=== PATIENT | female | born 1965 | race Caucasian/White ===

== ENCOUNTER → 2017-04-06 | Outpatient (CLI) | payer MEDICARE, MEDICAID ==
[~2017-04-06] MED LIST: ACET-819 PO; ARIP10TA2 PO; DCS100C PO; DIAZ-345 PO; DVL250TEC1; DVL500TSR; DVL500TSR PO; ESCT10T; FLC1T PO; IBP200T PO; LAMO100T PO; LAMO100T69 PO; LEVO750T24 PO; LOPE2TAB23 PO; LORA1TAB PO; MEDR2.5T28 IM; MIRT15TA6 PO; MULT-187 PO; NA P133E35 PR; PEG250PW PO; POLY17PO23 PO; PROP20TA23; RSP1B30; SULF1TAB35 PO; [UNRECOGNIZED DRUG - CODE] PO
--- NOTE | 2017-04-07 19:23 | Diagnostic Imaging Report ---
Bilateral screening mammogram. The current study was also evaluated with a Computer Aided Detection (CAD) system. INDICATION: Screening. No current complaints stated on the questionnaire. COMPARISON: 01/30/2015. FINDINGS: The breasts are composed of heterogeneously dense parenchyma which may decrease mammographic sensitivity. Pacemaker is seen in the axillary region of the left breast interfering with the positioning of the patient for the mammogram. Also, the patient is mentally disabled resulting in less than optimum views and slight motion on the left MLO view despite multiple attempts to obtain better images as noted by the technologist. Diffuse calcifications with benign appearance seen. IMPRESSION: Limited exam with no definite change from the prior studies. ACR BI-RADS Category 2: Benign findings. Result letter will be mailed to the patient. Note: At least 10% of breast cancer is not imaged by mammography. Dictated by: Dictated on workstation # [id number]
== END ==
LOC: RAD 08:48
PROVIDERS: ATTEND Nurse Practitioner Family
DX: Z12.31 Encounter for screening mammogram for malignant neoplasm of breast (principal)
CPT/HCPCS: 77067

== ENCOUNTER → 2017-04-29 | Outpatient (CLI) | payer MEDICARE, MEDICAID | LOC: PREOP 05:41 | PROVIDERS: ATTEND Surgery | DX: Z01.818 Encounter for other preprocedural examination (principal); Z12.11 Encounter for screening for malignant neoplasm of colon ==

== ENCOUNTER 2017-05-03 08:32 | Day surgery (SDC) | payer MEDICARE, MEDICAID ==
[~2017-05-03] VITALS: Ht 160 cm; Wt 69.9 kg
[2017-05-03] MEDS ORDERED: NS IV 1000 ML 1,000 ML IV SCH (09:15)
[2017-05-03 09:25] VITALS: BP 111/67
[2017-05-03] MEDS ORDERED: NS IV 1000 ML 1,000 ML ONE (09:30)
--- NOTE | 2017-05-03 09:47 | Progress Note-Pre Operative ---
Pre-Operative Progress Note H&P Reviewed The H&P was reviewed, patient examined and no changes noted. Time Seen by Provider: 09:47 Date H&P Reviewed: May 03, 2017 Time H&P Reviewed: 09:47 Pre-Operative Diagnosis: screening colonoscopy GABBY CROCKER DO May 03, 2017 9:47 am
[2017-05-03] MEDS ORDERED: fentaNYL INJECTION 100 MCG/2 ML AMP ONE (10:12)
[2017-05-03] MEDS ORDERED: proPOfol 200 MG/20 ML (DIPRIVAN) VIAL IV ONE (10:12)
--- NOTE | 2017-05-03 11:00 | Discharge Inst-Simple/Standard ---
Discharge Inst-Standard Patient Instructions/Follow Up Plan of Care/Instructions/FU: Hold ibuprofen for 2 more days Follow up with Dr. Mills in 2 weeks Repeat colonoscopy in 5 years or sooner if changes in current conditions. Activity as Tolerated: Yes Discharge Diet: No Restrictions LISA OLIVARES APRN May 03, 2017 11:00
--- NOTE | 2017-05-03 11:01 | Progress Note-Post Operative ---
Post-Operative Progess Note Surgeon (s)/Negative Cleaner (s) Surgeon GABBY CROCKER DO Negative Cleaner: na Pre-Operative Diagnosis screening colonoscopy Post-Operative Diagnosis ascending colon polyp Procedure & Operative Findings Date of Procedure 05/03/17 Procedure Performed/Findings colonoscopy with hot bx polypectomy Anesthesia Type per pecan picker Estimated Blood Loss Estimated blood loss (mL): none Specimens/Packing Specimens Removed ascending colon polyp GABBY CROCKER DO May 03, 2017 11:01 am
[2017-05-03 11:15] VITALS: BP 134/80
[2017-05-03 11:45] VITALS: BP 118/85
[2017-05-03 12:00] VITALS: BP 118/85
--- NOTE | 2017-05-03 12:52 | OPERATIVE REPORT ---
DATE OF SERVICE: 05/03/2017 PREOPERATIVE DIAGNOSIS: Screening colonoscopy. POSTOPERATIVE DIAGNOSIS: Ascending colon polyp. PROCEDURE: Colonoscopy with hot biopsy polypectomy. SURGEON: Gabby Mills DO ANESTHESIA: Per APPLICATIONS ENGINEER MANUFACTURING. ESTIMATED BLOOD LOSS: None. COMPLICATIONS: None. INDICATIONS: The patient is a 51-year-old female, who has not had a screening colonoscopy. She understands risks and benefits of procedure and wished to proceed with procedure. Consent was signed and on the chart. DESCRIPTION OF PROCEDURE: The patient was taken to the endoscopy suite, placed in left lateral recumbent position. Timeout was performed. Digital rectal exam was performed and there were no palpable polyps, mass or ulcerations. The scope was inserted in the rectum and advanced all the way to the cecum with minimal difficulty. There were no polyps, masses or ulcerations in the cecum. Scope was slowly retracted back. A small polyp in the ascending colon, which hot biopsy polypectomy was performed. Scope was continued to be slowly retracted back. There were no polyps, masses or ulcerations in the remainder of the ascending colon, transverse colon, descending colon, sigmoid colon, and rectum. Within the rectum, scope was also retroflexed. No other pathology. Scope was returned to its normal position slowly withdrawn until completely removed. The patient tolerated the procedure well without any complications. She was taken to recovery room in stable condition. RECOMMENDATIONS: The patient will need repeat colonoscopy in 5 years. If she has any problems prior to that, she should be reevaluated at that time. The patient will follow up in the office in 2 weeks to discuss pathology. Job ID: [id number] DocumentID: [id number] Dictated Date: 05/03/2017 11:04:55 Manager Media Date: 05/03/2017 11:53:11 Dictated By: GABBY MILLS DO
== END 2017-05-03 12:00 | disposition home or self-care (01) ==
LOC: ENDO 08:32
PROVIDERS: ATTEND Surgery
DX: Z12.11 Encounter for screening for malignant neoplasm of colon (principal); D12.2 Benign neoplasm of ascending colon; G40.909 Epilepsy, unspecified, not intractable, without status epilepticus; F79 Unspecified intellectual disabilities; Z79.899 Other long term (current) drug therapy
CPT/HCPCS: 84703; 88305

== ENCOUNTER 2018-09-14 18:01 | Emergency (ER) | payer MEDICARE, MEDICAID ==
[~2018-09-14] VITALS: Ht 160 cm; Wt 55.3 kg
--- OUTSIDE RECORDS SUMMARY | 2018-09-14 18:06 | XMS REPORT ---
Author Author THI DELEON [facility] Address [address] [place] [address] Care Team Providers Care Adolescent Coordinator Name Role Phone THI DELEON Unavailable PROBLEMS Unknown Problems ALLERGIES No Information SOCIAL HISTORY Never Assessed PLAN OF CARE VITAL SIGNS MEDICATIONS Unknown Medications RESULTS No Results PROCEDURES No Known procedures IMMUNIZATIONS No Known Immunizations MEDICAL (GENERAL) HISTORY Type Description Date Medical History Mild IDD Medical History Explosive mood disorder Medical History VNS implant Medical History Seizure disorder Medical History Constipation Medical History Depression Medical History Gerd Medical History Sleep apnea Medical History cataracts Medical History Epilepsy Surgical History VNS implant
--- OUTSIDE RECORDS SUMMARY | 2018-09-14 18:07 | XMS REPORT | Continuity of Care Document ---
Author Author [facility] Organization [facility] Address Unknown Phone Unavailable Allergies Active Description Code Type Severity Reaction Onset Reported/Identified Relationship to Patient Clinical Status Yes NO KNOWN DRUG ALLERGIES UNKNOWN NO KNOWN DRUG ALLERG Yes No Known Drug Allergies [id number] Drug Allergy Mild N/A 10/03/2013 Medications Medication Packaging Start Date Stop Date Route Dosage Sig POLY/BACI/NEOM OINT OINT (NEOSPORIN) della 10/28/2017 10/28/2017 [id number] Problems Date Dx Coded Attending Type Code Diagnosis Diagnosed By 10/10/2013 ROMI PASCUAL DO Ot 287.5 THROMBOCYTOPENIA NOS 10/10/2013 ROMI PASCUAL DO Ot 319 UNSPECIFIED INTELLECTUAL DISABILITIES 10/10/2013 ROMI PASCUAL DO Ot 345.90 EPILEPSY UNSPEC W/O MENTION INTRACTABLE 10/10/2013 ROMI PASCUAL DO Ot 486 PNEUMONIA, ORGANISM NOS 10/10/2013 ROMI PASCUAL DO Ot 574.11 CHOLELITH/GB INF NEC-OBS 10/10/2013 ROMI PASCUAL DO Ot 599.0 URIN TRACT INFECTION NOS 10/10/2013 ROMI PASCUAL DO Ot 790.5 ABN SERUM ENZY LEVEL NEC 02/18/2015 Ot V76.12 02/18/2015 Ot V76.12 02/21/2015 Ot V76.12 03/10/2015 Ot V76.12 04/04/2017 Ot 793.81 MAMMOGRAPHIC MICROCLACIFICATION 04/04/2017 Ot V67.09 SURGERY FOLLOW-UP, OTHER SURGERY 04/04/2017 Ot 793.80 UNSPEC ABNORMAL MAMMOGRAM 04/04/2017 ROMI PASCUAL DO Ot V76.12 OTH SCREEN MAMMO-MALIGN NEOPLASM OF JAIME 04/04/2017 ROMI PASCUAL DO Ot 592.0 CALCULUS OF KIDNEY 04/04/2017 ROMI PASCUAL DO Ot 593.9 RENAL URETERAL DIS NOS 04/04/2017 ROMI PASCUAL DO Ot 790.6 ABN BLOOD CHEMISTRY NEC 04/04/2017 ROMI PASCUAL DO Ot 793.5 NOSP (ABN) FINDINGS ON RADIOLOGICAL OT 04/04/2017 Ot V76.12 OTH SCREEN MAMMO-MALIGN NEOPLASM OF JAIME 04/04/2017 THI DELEON [facility] Ot Z12.31 ENCNTR SCREEN MAMMOGRAM FOR MALIGNANT NE 04/04/2017 THI DELEON [facility] Ot Z12.31 ENCNTR SCREEN MAMMOGRAM FOR MALIGNANT NE 04/04/2017 THI DELEON [facility] Ot Z12.31 ENCNTR SCREEN MAMMOGRAM FOR MALIGNANT NE 04/06/2017 Ot 793.81 MAMMOGRAPHIC MICROCLACIFICATION 04/06/2017 Ot V67.09 SURGERY FOLLOW-UP, OTHER SURGERY 04/06/2017 Ot 793.80 UNSPEC ABNORMAL MAMMOGRAM 04/06/2017 ROMI PASCUAL DO Ot V76.12 OTH SCREEN MAMMO-MALIGN NEOPLASM OF JAIME 04/06/2017 ROMI PASCUAL DO Ot 592.0 CALCULUS OF KIDNEY 04/06/2017 ROMI PASCUAL DO Ot 593.9 RENAL URETERAL DIS NOS 04/06/2017 ROMI PASCUAL DO Ot 790.6 ABN BLOOD CHEMISTRY NEC 04/06/2017 ROMI PASCUAL DO Ot 793.5 NOSP (ABN) FINDINGS ON RADIOLOGICAL OT 04/06/2017 Ot V76.12 OTH SCREEN MAMMO-MALIGN NEOPLASM OF JAIME 04/06/2017 THI DELEON [facility] Ot Z12.31 ENCNTR SCREEN MAMMOGRAM FOR MALIGNANT NE 04/06/2017 THI DELEONP Ot Z12.31 ENCNTR SCREEN MAMMOGRAM FOR MALIGNANT NE 05/03/2017 GABBY CROCKER DO Ot D12.2 BENIGN NEOPLASM OF ASCENDING COLON 05/03/2017 GABBY CROCKER DO Ot F79 UNSPECIFIED INTELLECTUAL DISABILITIES 05/03/2017 GABBY CROCKER DO Ot G40.909 EPILEPSY, UNSP, NOT INTRACTABLE, WITHOUT 05/03/2017 GABBY CROCKER DO Ot Z12.11 ENCOUNTER FOR SCREENING FOR MALIGNANT NE 05/03/2017 GABBY CROCKER DO Ot Z79.899 OTHER BRIDGE OPERATOR SLIP (CURRENT) DRUG THERAPY 05/05/2017 THI DELEON [facility] Ot Z12.31 ENCNTR SCREEN MAMMOGRAM FOR MALIGNANT NE 05/09/2017 THI DELEON [facility] Ot Z12.31 ENCNTR SCREEN MAMMOGRAM FOR MALIGNANT NE 05/10/2017 CROCKERGABBY GARCIA DO Ot D12.2 BENIGN NEOPLASM OF ASCENDING COLON 05/10/2017 CROCKERGABBY GARCIA DO Ot F79 UNSPECIFIED INTELLECTUAL DISABILITIES 05/10/2017 GABBY CROCKER DO Ot G40.909 EPILEPSY, UNSP, NOT INTRACTABLE, WITHOUT 05/10/2017 CROCKER GABBY DIAS Ot Z12.11 ENCOUNTER FOR SCREENING FOR MALIGNANT NE 05/10/2017 GABBY CROCKER DO Ot Z79.899 OTHER BRIDGE OPERATOR SLIP (CURRENT) DRUG THERAPY 06/03/2017 GABBY CROCKER DO Ot D12.2 BENIGN NEOPLASM OF ASCENDING COLON 06/03/2017 GABBY CROCKER DO Ot F79 UNSPECIFIED INTELLECTUAL DISABILITIES 06/03/2017 GABBY CROCKER DO Ot G40.909 EPILEPSY, UNSP, NOT INTRACTABLE, WITHOUT 06/03/2017 CROCKER GABBY DIAS Ot Z12.11 ENCOUNTER FOR SCREENING FOR MALIGNANT NE 06/03/2017 GABBY CROCKER DO Ot Z79.899 OTHER BRIDGE OPERATOR SLIP (CURRENT) DRUG THERAPY 10/28/2017 Michel Negrete 873.42 OPEN WOUND OF FOREHEAD, UNCOMPLICATED 10/28/2017 Michel Negrete S01.81XA LACERATION W/O FOREIGN BODY OF OTH PART OF HEAD, INIT ENCNTR 11/04/2017 Michel Negrete V58.32 ENCOUNTER FOR REMOVAL OF SUTURES 11/04/2017 Michel Negrete Z48.02 ENCOUNTER FOR REMOVAL OF SUTURES 09/02/2018 Spenser Alcantara E888.8 OTHER FALL 09/02/2018 Spenser Alcantara V71.4 OBSERVATION FOLLOWING OTHER ACCIDENT 09/02/2018 Spenser Alcantara W18.30XA FALL ON SAME LEVEL, UNSPECIFIED, INITIAL ENCOUNTER 09/02/2018 Spenser Alcantara Z04.3 ENCOUNTER FOR EXAM AND OBSERVATION FOLLOWING OTH ACCIDENT Procedures Code Description Performed By Performed On 51.23 LAPAROSCOPIC CHOLECYSTECTOMY 10/08/2013 87.53 INTRAOPER CHOLANGIOGRAM 10/08/2013 Results Test Result Range Valproic Acid - 11/01/16 11:38 Valproic Acid 101.4 ug/mL 55.0-105.0 Valproic Acid - 11/08/16 09:37 Valproic Acid 68.5 ug/mL 55.0-105.0 Valproic Acid - 02/25/17 11:17 Valproic Acid 91.1 ug/mL 55.0-105.0 Urine beta human chorionic gonadotropin (hCG) measurement - 05/03/17 09:00 Urine beta human chorionic gonadotropin (hCG) measurement NEGATIVE NEGATIVE Valproic Acid - 06/02/17 08:58 Valproic Acid 106.9 ug/mL 55.0-105.0 Thyroid Stimulating Hormone - 06/10/17 08:46 TSH 3.87 mIU/mL 0.32-5.00 Valproic Acid - 06/24/17 08:36 Valproic Acid 87.1 ug/mL 55.0-105.0 Valproic Acid - 09/02/17 09:13 Valproic Acid 115.7 ug/mL 55.0-105.0 Valproic Acid - 12/02/17 08:38 Valproic Acid 53.9 ug/mL 55.0-105.0 Valproic Acid - 03/09/18 09:55 Valproic Acid 87.7 ug/mL 55.0-105.0 Encounters ACCT No. Visit Date/Time Discharge Status Pt. Type Provider Facility Loc./Unit Complaint [id number] 05/03/2017 08:32:00 05/03/2017 12:00:00 DIS Outpatient GABBY CROCKER DO [facility] ENDO SCREENING [id number] 04/29/2017 05:41:00 04/29/2017 23:59:59 CLS Outpatient GABBY CROCKER DO [facility] PREOP SCREENING COLONSCOPY [id number] 04/06/2017 08:48:00 04/06/2017 23:59:59 CLS Outpatient THI DELEON [facility] RAD SCREENING Z12.39 [id number] 05/23/2014 08:15:00 05/23/2014 23:59:59 CLS Outpatient ROMI PASCUAL DO [facility] RAD KIDNEY MASS SEEN ON 10/10 [id number] 10/03/2013 15:27:00 10/10/2013 16:08:00 DIS Inpatient DEEPTIEDENILSON ROMI DIAS [facility] 4TH PNEUMONIA,UTI, ALTERED MENTAL STATUS [id number] 08/29/2013 10:03:00 08/29/2013 23:59:59 CLS Outpatient ROMI PASCUAL DO [facility] RAD SCREENING [id number] 01/30/2015 12:49:00 Document Registration [id number] 08/21/2012 12:50:00 Document Registration [id number] 02/16/2012 09:47:00 Document Registration [id number] 09/02/2018 18:23:00 09/02/2018 18:43:00 [id number] 03/09/2018 09:51:00 03/09/2018 23:59:00 DIS Outpatient Robert Wells [id number] 12/02/2017 08:29:00 12/02/2017 23:59:00 DIS Outpatient Romi Pascual [id number] 11/04/2017 08:30:00 11/04/2017 08:42:00 DIS Outpatient Michel Negrete [id number] 10/28/2017 08:52:00 10/28/2017 10:40:00 [id number] 10/05/2017 08:31:00 10/05/2017 23:59:00 DIS Outpatient BETO TOBIAS [id number] 09/02/2017 08:55:00 09/02/2017 23:59:00 DIS Outpatient Romi Pascual [id number] 06/24/2017 08:33:00 06/24/2017 23:59:00 DIS Outpatient Romi Pascual [id number] 06/10/2017 08:42:00 06/10/2017 23:59:00 DIS Outpatient Romi Pascual [id number] 06/02/2017 08:47:00 06/02/2017 23:59:00 DIS Outpatient Romi Pascual [id number] 02/25/2017 11:06:00 02/25/2017 23:59:00 DIS Outpatient Romi Pascual [id number] 11/08/2016 08:55:00 11/08/2016 23:59:00 DIS Outpatient Romi Pascual [id number] 11/01/2016 11:30:00 11/01/2016 23:59:00 DIS Outpatient Romi Pascual [id number] 10/28/2017 11:49:16 Document Registration [id number] 12/29/2016 15:02:00 12/29/2016 23:59:59 [facility] Outpatient Rogelio Grijalva
--- NOTE | 2018-09-14 18:51 | ED Fall/Injury ---
General Chief Complaint: Trauma-Non Activation Stated Complaint: FALL IN SHOWER, HEAD INJ/SCRAPE Source: patient, caregiver (IS EXTREMELY LIMITED HISTORIAN) Exam Limitations: language barrier (PT HAS VERY MINIMAL VERBAL SKILLS, BUT CAN NOD HEAD YES/NO ) History of Present Illness Date Seen by Provider: Sep 14, 2018 Time Seen by Provider: 18:35 Initial Comments PT ARRIVES VIA POV WITH GOVERNMENT DOCUMENTS LIBRARIAN, PT AMBULATES IN ON OWN, WEARING A HELMET--PT WITH RESCARE WAS SENT HERE FROM [facility] PT "FELL" IN THE SHOWER AROUND 1600 TODAY PT HAD ANOTHER GOVERNMENT DOCUMENTS LIBRARIAN IN BATHROOM WITH HER BUT REPORTEDLY "TURNED HER BACK TO GET A TOWEL" WHEN PT "FELL", AND THIS GOVERNMENT DOCUMENTS LIBRARIAN THAT ARRIVES WITH PT STATES SHE JUST GOT TO WORK AROUND THAT TIME AND WALKED IN A SHORT TIME AFTER THE INCIDENT. GOVERNMENT DOCUMENTS LIBRARIAN THAT WAS WITH THE PT AT THE TIME IS NOT HERE WITH PT IN ER THIS GOVERNMENT DOCUMENTS LIBRARIAN IS UNABLE TO STATE IF PT HAD A SEIZURE OR NOT ( STATES SHE HAS NEVER SEEN A SEIZURE, AND THIS PT IS BRAND NEW TO HER--SHE HAS ONLY BEEN WITH CLIENT 2 WEEKS) AND SHE STATES THAT THE OTHER GOVERNMENT DOCUMENTS LIBRARIAN DOES NOT KNOW IF SHE HAD A SEIZURE OR NOT. SHE STATES " SHE MIGHT HAVE HAD A SEIZURE OR SOMETHING AND SHE WAS TRYING TO HIT STAFF AND SHE WAS RUBBING HER BREASTS AND RUBBING HERSELF" STATES "IT LASTED 10-15 MINUTES" "THEN SHE GOT UP AND GOT DRESSED AND EVERYTHING " SHE STATES PT DID NOT HAVE LOSS OF CONSCIOUSNESS AT ANY TIME PT HAS A KNOWN SEIZURE DISORDER AND HAS TAKEN ALL REGULAR MEDICATIONS TODAY PT WITH OBVIOUS MR. PT HAS ABRASION TO RIGHT FOREHEAD, BRUISE TO RIGHT SHOULDER, RIGHT WRIST AND RIGHT HIP SHE STATES THAT PT IS ACTING NORMAL ON DIRECT QUESTIONING TO PT IF SHE HURTS ANYWHERE, SHE NODS HEAD YES AND POINTS TO RIGHT FOREHEAD AREA OF ABRASION. SHE NODS HEAD YES TO PAIN IN RIGHT SHOULDER, RIGHT ELBOW, AND RIGHT WRIST SPECIFICALLY SHE SHAKES HEAD NO TO PAIN IN NECK, BACK, RIGHT HIP SHAKES HEAD NO TO PAIN ANYWHERE ELSE ON BODY AND SHAKES HEAD NO ON DIRECT QUESTIONING OF PAIN ANYWHERE ON HER LEFT SIDE, WHEN I POINT TO ALL AREAS ON LEFT SIDE OF HER BODY. GOVERNMENT DOCUMENTS LIBRARIAN STATES " SHE'S HAD BEHAVIORS THE LAST 2 DAYS" 'LIKE SHE WAS COUGHING AND SNEEZING AT THE DOCTOR'S" --SAW AN "ESOPHAGUS SPECIALIST" THIS MORNING. SHE STATES THAT PT HAS NOT BEEN COUGHING OR SNEEZING AT ANY OTHER TIME. PCP: DR. PASCUAL Allergies and Home Medications Allergies Coded Allergies: No Known Drug Allergies (Unverified , 10/03/13) Home Medications Acetaminophen 500 Mg Tablet, 1,000 MG PO Q6H PRN for PAIN, (Reported) Aripiprazole 10 Mg Tablet, 15 MG PO 0800 & 2000, (Reported) Diazepam 5 Mg Tablet, 5 MG PO DAILY PRN, (Reported) Divalproex Sodium 500 Mg Tab, 1,000 MG PO BID, (Reported) Docusate Sodium 100 Mg Cap, 100 MG PO BID, (Reported) Folic Acid 1 Mg Tab, 1 MG PO DAILY, (Reported) Lamotrigine 100 Mg Tablet, 150 MG PO 0800 and 1400 , (Reported) Lamotrigine 100 Mg Tablet, 150 MG PO dailya @ 2000, (Reported) Loperamide Hcl 2 Mg Tab.chew, 2 MG PO TID PRN for LOOSE STOOLS, (Reported) Lorazepam 1 Mg Tab, 2 MG PO TID PRN for SEIZURE ACTIVITY, (Reported) Magnesium Hydroxide 400 Mg/5 Ml Oral.susp, 10 ML PO Q 3days PRN for CONSTIPATION , (Reported) Medroxyprogesterone Acetate 2.5 Mg Tablet, 150 MG IM Q 12 weeks, (Reported) Mirtazapine 15 Mg Tablet, 15 MG PO HS, (Reported) Multivit, Iron, Min No. 8, Fa 1 Each Tablet, 1 TAB PO HS, (Reported) Polyethylene Glycol 1 Ea Pack, 17 MG PO DAILY, (Reported) Polyethylene Glycol 17 Gm Pack, 17 GM PO DAILY, (Reported) Sod Phosphate/Sod Biphosphate 1 Ea Enem, 1 EA UT DAILY PRN for CONSTIPATION, ( Reported) Patient Home Medication List Home Medication List Reviewed: Yes Review of Systems Review of Systems Constitutional: other (VERY MINIMAL INFORMATION FROM PT) Ears, Nose, Mouth, Throat: see HPI Respiratory: see HPI Gastrointestinal: No diarrhea, No vomiting Musculoskeletal: see HPI Skin: other (ABRASIONS) Psychiatric/Neurological: See HPI, Pre-Existing Deficit Past Tnjrsgf-Ahivvr-Lzvbfi Hx Patient Social History Alcohol Use: Denies Use Recreational Drug Use: No Smoking Status: Never a Smoker Recent Foreign Travel: No Contact w/Someone Who Travel: No Immunizations Up To Date Tetanus Booster (TDap): Less than 5yrs Date of Influenza Vaccine: Sep 28, 2013 Past Medical History Surgeries: No Respiratory: No Cardiac: No Neurological: Yes (MR, EPILEPSY) Developmental Disorder, Seizure Disorder Reproductive Disorders: No Sexually Transmitted Disease: No HIV/AIDS: No Genitourinary: Yes Bladder Infection Gastrointestinal: Yes Chronic Constipation Musculoskeletal: No Endocrine: No HEENT: No Cancer: No Psychosocial: Yes (MR) Depression Integumentary: No Blood Disorders: No Adverse Reaction/Blood Tranf: No Physical Exam Vital Signs Vital Signs - First Documented Capillary Refill : Height, Weight, BMI Height: 5'3.00" Weight: 154lbs. 0.0oz. [id number]; 27.3 BMI Method: General Appearance: no apparent distress, other (SMALL STATURE) HEENT: PERRL/EOMI, normal ENT inspection, TMs normal, pharynx normal, other ( ABRASION TO RIGHT FOREHEAD/FRONTAL SCALP) Neck: non-tender, full range of motion, supple, normal inspection Cardiovascular: normal peripheral pulses, regular rate, rhythm, no edema, no JVD, no murmur Respiratory: chest non-tender, normal breath sounds, no respiratory distress, no accessory muscle use Peripheral Pulses: 2+ Dorsalis Pedis (R), 2+ Left Dors-Pedis (L), 2+ Radial Pulses (R), 2+ Radial Pulses (L) Gastrointestinal: normal bowel sounds, non tender, soft Back: normal inspection, no CVA tenderness, no vertebral tenderness Extremities: normal range of motion, no pedal edema, no calf tenderness, normal capillary refill, other (TENDERNESS AND BRUISING TO RIGHT SHOULDER, RIGHT ELBOW, RIGHT WRIST, RIGHT HIP. WITH MINOR ABRASION TO RIGHT WRIST. ) Neurologic/Psychiatric: microphone operator II-XII nml as tested (GROSSLY INTACT), no motor/ sensory deficits (GROSS MOTOR/SENSORY INTACT), alert, normal mood/affect, other (MINIMAL VERBAL SKILLS. PT VERY COOPERATIVE. PT AMBULATES ON OWN WITH SOME MILD GAIT DISTURBANCE--NORMAL FOR PT, PER GOVERNMENT DOCUMENTS LIBRARIAN) Skin: normal color, warm/dry, ecchymosis Progress/Results/Core Measures Results/Orders Lab Results Laboratory Tests Test 09/14/18 19:11 Range/Units White Blood Count 6.0 4.3-11.0 10^3/uL Red Blood Count 4.14 L 4.35-5.85 10^6/uL Hemoglobin 14.8 11.5-16.0 G/DL Hematocrit 41 35-52 % Mean Corpuscular Volume 100 H 80-99 FL Mean Corpuscular Hemoglobin 36 H 25-34 PG Mean Corpuscular Hemoglobin Concent 36 32-36 G/DL Red Cell Distribution Width 13.9 10.0-14.5 % Platelet Count 135 130-400 10^3/uL Mean Platelet Volume 10.5 H 7.4-10.4 FL Neutrophils (%) (Auto) 59 42-75 % Lymphocytes (%) (Auto) 27 12-44 % Monocytes (%) (Auto) 13 H 0-12 % Eosinophils (%) (Auto) 1 0-10 % Basophils (%) (Auto) 0 0-10 % Neutrophils # (Auto) 3.5 1.8-7.8 X 10^3 Lymphocytes # (Auto) 1.6 1.0-4.0 X 10^3 Monocytes # (Auto) 0.8 0.0-1.0 X 10^3 Eosinophils # (Auto) 0.0 0.0-0.3 10^3/uL Basophils # (Auto) 0.0 0.0-0.1 10^3/uL Prothrombin Time 12.6 12.2-14.7 SEC INR Comment 0.9 0.8-1.4 Activated Partial Thromboplast Time 25 24-35 SEC Sodium Level 139 135-145 MMOL/L Potassium Level 4.9 3.6-5.0 MMOL/L Chloride Level 103 98-107 MMOL/L Carbon Dioxide Level 27 21-32 MMOL/L Anion Gap 9 5-14 MMOL/L Blood Urea Nitrogen 18 7-18 MG/DL Creatinine 0.98 0.60-1.30 MG/DL Estimat Glomerular Filtration Rate 60 BUN/Creatinine Ratio 18 Glucose Level 92 70-105 MG/DL Calcium Level 9.6 8.5-10.1 MG/DL Corrected Calcium 9.5 8.5-10.1 MG/DL Total Bilirubin 0.2 0.1-1.0 MG/DL Aspartate Amino Transf (AST/SGOT) 39 H 5-34 U/L Alanine Aminotransferase (ALT/SGPT) 16 0-55 U/L Alkaline Phosphatase 89 40-136 U/L Total Protein 8.1 6.4-8.2 GM/DL Albumin 4.1 3.2-4.5 GM/DL Serum Test, Qualitative NEGATIVE NEGATIVE Valproic Acid (Depakene) Level 58.5 50.0-100.0 UG/ML My Orders Orders - MIKEROD Santacruz Saline Lock/Iv-Start (09/14/18 18:44) Ct Head/Cervical Spine Wo (09/14/18 18:44) Cbc With Automated Diff (09/14/18 18:44) Comprehensive Metabolic Panel (09/14/18 18:44) Hcg,Qualitative Serum (09/14/18 18:44) Protime With Inr (09/14/18 18:44) Partial Thromboplastin Time (09/14/18 18:44) Valproic Acid (09/14/18 18:44) Chest 1 View, Ap/Pa Only (09/14/18 18:44) Forearm, Right, 2 Views (09/14/18 18:44) Humerus, Right, 2 Views (09/14/18 18:44) Pelvis With Right Hip 2-3views (09/14/18 18:44) Dipht,Pertuss(Acell),Tet Adult (Boostrix (09/14/18 19:15) Wound Dressing-Ed (09/14/18 20:21) Vaccine Administration Single (09/14/18 ) Vital Signs/I&O 09/14/18 09/14/18 09/14/18 18:55 18:55 20:35 Temp 97.2 97.2 Pulse 92 92 87 Resp 20 20 16 B/P (MAP) 123/80 (94) 123/80 (94) 153/90 (111) Pulse Ox 97 97 98 Progress Progress Note : Progress Note UNEVENTFUL ER STAY. Diagnostic Imaging Comments CXR--NO ACUTE PROCESS XRAYS RIGHT HUMERUS--NO ACUTE PROCESS XRAYS RIGHT FOREARM--NO ACUTE PROCESS XRAYS PELVIS AND RIGHT HIP--NO ACUTE PROCESS CT HEAD/MAXILLOFACIALS/CERVICAL SPINE--NO ACUTE PROCESS PER RADIOLOGIST REPORT Reviewed: Reviewed by Me Departure Impression Primary Impression: Status post fall Additional Impressions: Minor head injury without loss of consciousness Forehead abrasion Forehead contusion Contusion of right shoulder Contusion of right elbow and forearm Contusion of right wrist Contusion of right hip Brayulfxlk-xvjjodjec-cujuvyw (DPT) vaccination administered at current visit History of seizures Disposition: 01 HOME, SELF-CARE Condition: Stable Departure-Patient Inst. Referrals: ROMI PASCUAL DO (PCP/Family) Primary Care Physician Patient Instructions: Contusion (DC), Diphtheria and Tetanus Toxoids, and Acellular Pertussis Vaccine, Minor Head Injury (DC), Preventing Falls in the Older Adult, Skin Abrasions (DC) Add. Discharge Instructions: CONTINUE ALL MEDICATIONS PRESCRIBED FOLLOW UP WITH YOUR DR NEEDED All discharge instructions reviewed with patient and/or family. Voiced understanding. Images Full Body/Extremities Full Progress SEE ADDITIONAL PAPER DIAGRAMS FOR IMAGES ROD MCKEON DO Sep 14, 2018 18:51
[2018-09-14] MEDS ORDERED: TETANUS,DIPTH,PERTUSS P/F (BOOSTRIX) 0.5 ML VIAL IM ONE (19:15)
[2018-09-14 19:20] LABS: BASOPHILS % (AUTO) 0 % (0-10); EOSINOPHILS % (AUTO) 1 % (0-10); HEMATOCRIT 41 % (35-52); HEMOGLOBIN 14.8 G/DL (11.5-16.0); LYMPHOCYTES # (AUTO) 1.6 X 10^3 (1.0-4.0); LYMPHOCYTES % (AUTO) 27 % (12-44); MEAN CORPUSCULAR HEMOGLOBIN 36 PG (25-34); MEAN CORPUSCULAR HGB CONC 36 G/DL (32-36); MEAN CORPUSCULAR VOLUME 100 FL (80-99); MEAN PLATELET VOLUME 10.5 FL (7.4-10.4); MONOCYTES # (AUTO) 0.8 X 10^3 (0.0-1.0); MONOCYTES % (AUTO) 13 % (0-12); NEUTROPHILS # (AUTO) 3.5 X 10^3 (1.8-7.8); NEUTROPHILS % (AUTO) 59 % (42-75); PLATELET COUNT 135 10^3/uL (130-400); RED BLOOD COUNT 4.14 10^6/uL (4.35-5.85); RED CELL DISTRIBUTION WIDTH 13.9 % (10.0-14.5)
[2018-09-14 19:28] LABS: INR 0.9 (0.8-1.4); PROTHROMBIN TIME PATIENT 12.6 SEC (12.2-14.7)
[2018-09-14 19:40] LABS: ALBUMIN 4.1 GM/DL (3.2-4.5); BILIRUBIN,TOTAL 0.2 MG/DL (0.1-1.0); CALCIUM 9.6 MG/DL (8.5-10.1); CREATININE SERUM 0.98 MG/DL (0.60-1.30); TOTAL PROTEIN 8.1 GM/DL (6.4-8.2)
--- NOTE | 2018-09-14 19:42 | Diagnostic Imaging Report ---
PROCEDURE: CT head and CT cervical spine without contrast. TECHNIQUE: Multiple contiguous axial images were obtained through the brain and cervical spine without the use of intravenous contrast. Sagittal and coronal reformations through the cervical spine were then performed. INDICATION: Fall. Laceration above the right eye The ventricles are normal in size, shape and position. There is no acute parenchymal hemorrhage, edema or mass. There is no extra-axial mass or hemorrhage. There is no fracture. There is normal height and alignment of the cervical vertebral bodies. Disc spaces are well-maintained. There is anterior spondylosis. No spinal canal encroachment is seen. There is no fracture. IMPRESSION: CT of the head and cervical spine shows no acute abnormality. Dictated by: Dictated on workstation # [id number]
--- NOTE | 2018-09-14 19:45 | Diagnostic Imaging Report ---
INDICATION: Fall, right forearm pain. EXAMINATION: Two views of the right forearm were obtained. FINDINGS: No fracture, dislocation or other abnormality. IMPRESSION: Normal right forearm. Dictated by: Dictated on workstation # [id number]
--- NOTE | 2018-09-14 19:45 | Diagnostic Imaging Report ---
INDICATION: Fall, right arm pain. EXAMINATION: Two views of the right humerus were obtained. FINDINGS: No fracture, dislocation or other abnormality. IMPRESSION: Normal right humerus. Dictated by: Dictated on workstation # [id number]
--- NOTE | 2018-09-14 19:45 | Diagnostic Imaging Report ---
INDICATION: Fall. EXAMINATION: A single view of the chest was obtained. FINDINGS: Normal heart size and vascularity. The lungs are clear. There is no effusion or pneumothorax. There is no acute bony abnormality. IMPRESSION: No acute abnormality is seen with no change from 10/05/2013. Dictated by: Dictated on workstation # [id number]
[2018-09-14 19:46] LABS: VALPROIC ACID 58.5 UG/ML (50.0-100.0)
--- NOTE | 2018-09-14 19:46 | Diagnostic Imaging Report ---
INDICATION: Fall, right hip pain 3 views of the pelvis and right hip show no fracture, dislocation or other acute bony abnormality. IMPRESSION: No acute abnormality is seen. Dictated by: Dictated on workstation # [id number]
[2018-09-14 19:52] LABS: POTASSIUM 4.9 MMOL/L (3.6-5.0)
[2018-09-14 20:35] VITALS: BP 153/90
== END 2018-09-14 20:34 | disposition home or self-care (01) ==
LOC: EDUNIT# 18:01 → ER 18:02
DX: S09.90XA Unspecified injury of head, initial encounter (principal); S00.83XA Contusion of other part of head, initial encounter; S40.011A Contusion of right shoulder, initial encounter; S60.211A Contusion of right wrist, initial encounter; S70.01XA Contusion of right hip, initial encounter; G40.909 Epilepsy, unspecified, not intractable, without status epilepticus; F32.9 Major depressive disorder, single episode, unspecified; Z87.19 Personal history of other diseases of the digestive system; Z87.448 Personal history of other diseases of urinary system; W18.30XA Fall on same level, unspecified, initial encounter; Y92.009 Unspecified place in unspecified non-institutional (private) residence as the place of occurrence of the external cause
CPT/HCPCS: 36415; 70450; 71045; 72125; 73060; 73090; 80053; 80164; 84703; 85025; 85610; 85730; 90471; 90715

== ENCOUNTER → 2018-09-18 | Outpatient (CLI) | payer MEDICARE, MEDICAID ==
--- NOTE | 2018-09-18 13:22 | Diagnostic Imaging Report ---
INDICATION: Vomiting. TECHNIQUE: The study was performed in conjunction with Speech Pathology. Videofluoroscopy was performed during the swallowing of barium in multiple consistencies. The patient ingested thin barium as well as applesauce and mechanical soft and solid consistencies. A total of 1 minute 35 seconds of fluoroscopic time was utilized. FINDINGS: The patient swallowed without difficulty. There was normal laryngeal elevation and epiglottic tilt. No penetration or aspiration was observed. IMPRESSION: Unremarkable video swallow. Dictated by: Dictated on workstation # [id number]
== END ==
LOC: RAD 09:50
PROVIDERS: ATTEND Family Medicine
DX: R13.12 Dysphagia, oropharyngeal phase (principal); R63.4 Abnormal weight loss; R11.10 Vomiting, unspecified
CPT/HCPCS: 74230

== ENCOUNTER → 2019-04-10 | Outpatient (CLI) | payer MEDICARE, MEDICAID ==
--- NOTE | 2019-04-10 13:47 | Diagnostic Imaging Report ---
INDICATION: Status post fall one day earlier now with pain.. TECHNIQUE: 3 views of the right foot CORRELATION STUDY: None FINDINGS: The osseous structures of the foot are intact. Joint spaces are maintained. Alignment anatomic. Soft tissues appearing unremarkable. IMPRESSION: 1. Negative for acute findings of the foot. Dictated by: Dictated on workstation # [id number]
== END ==
LOC: RAD 11:34
PROVIDERS: ATTEND Family Medicine
DX: S99.921A Unspecified injury of right foot, initial encounter (principal); W19.XXXA Unspecified fall, initial encounter
CPT/HCPCS: 73630

== ENCOUNTER → 2019-05-07 | Outpatient (CLI) | payer MEDICARE, MEDICAID ==
--- NOTE | 2019-05-07 16:50 | Diagnostic Imaging Report ---
INDICATION: Cough and wheezing. EXAMINATION: PA and lateral chest. FINDINGS: There is a neurostimulator with the battery projecting over the left mid chest. There is some infiltrate at the left medial lung base. The right lung is clear. There are no effusions. IMPRESSION: Left medial basilar infiltrate, suspicious for pneumonia. Dictated by: Dictated on workstation # [id number]
== END ==
LOC: RAD 15:01
PROVIDERS: ATTEND Family Medicine
DX: R91.8 Other nonspecific abnormal finding of lung field (principal); R05 Cough; R06.2 Wheezing; Z96.89 Presence of other specified functional implants
CPT/HCPCS: 71046

== ENCOUNTER → 2019-05-10 | Outpatient (CLI) | payer MEDICARE, MEDICAID ==
[2019-05-10 10:43] LABS: BASOPHILS % (AUTO) 0 % (0-10); EOSINOPHILS # (AUTO) 0.1 10^3/uL (0.0-0.3); EOSINOPHILS % (AUTO) 1 % (0-10); HEMATOCRIT 42 % (35-52); HEMOGLOBIN 13.9 G/DL (11.5-16.0); LYMPHOCYTES # (AUTO) 1.5 X 10^3 (1.0-4.0); LYMPHOCYTES % (AUTO) 29 % (12-44); MEAN CORPUSCULAR HEMOGLOBIN 34 PG (25-34); MEAN CORPUSCULAR HGB CONC 33 G/DL (32-36); MEAN CORPUSCULAR VOLUME 103 FL (80-99); MEAN PLATELET VOLUME 10.2 FL (7.4-10.4); MONOCYTES # (AUTO) 0.5 X 10^3 (0.0-1.0); MONOCYTES % (AUTO) 10 % (0-12); NEUTROPHILS # (AUTO) 3.1 X 10^3 (1.8-7.8); NEUTROPHILS % (AUTO) 60 % (42-75); PLATELET COUNT 140 10^3/uL (130-400); RED CELL DISTRIBUTION WIDTH 12.8 % (10.0-14.5); WHITE BLOOD COUNT 5.1 10^3/uL (4.3-11.0)
--- NOTE | 2019-05-10 11:23 | Diagnostic Imaging Report ---
PA and lateral chest at 1052 hours. INDICATION: Pneumonia. FINDINGS: The heart size is within normal limits and stable when compared to 05/07/2019. As noted on the prior exam, there is a prominent area of pneumonia/atelectasis in the left retrocardiac region. This finding is essentially no different than on the prior exam. The lungs are otherwise clear. There is still no sign of pleural effusion. Mediastinum is not widened. The osseous structures are intact. The left-sided neurostimulator device seen previously is again evident and no different. IMPRESSION: There is persistent involvement of the left lung base by pneumonia/atelectasis. Overall, there has been no significant change when compared to the prior exam. A followup study would be recommended for continued evaluation. Dictated by: Dictated on workstation # [id number]
== END ==
LOC: RAD 10:21
PROVIDERS: ATTEND Family Medicine
DX: J18.9 Pneumonia, unspecified organism (principal)
CPT/HCPCS: 36415; 71046; 85025

== ENCOUNTER → 2019-05-16 | Outpatient (CLI) | payer MEDICARE, MEDICAID ==
--- NOTE | 2019-05-16 15:15 | Diagnostic Imaging Report ---
INDICATION: PNEUMONIA COMPARISON: 05/10/2019 FINDINGS: Frontal and lateral views of the chest demonstrate normal heart size and pulmonary vascularity. The lungs show persistent opacity within the medial left base projecting over the left heart. Overall, aeration is stable. Right lung is clear. No large effusion or pneumothorax is seen on either side. Left-sided neurostimulator device is noted. Bony structures show no acute abnormalities. IMPRESSION: 1. Stable opacity projecting over the medial left lung base. Correlation with CT is recommended. Dictated by: Dictated on workstation # [id number]
== END ==
LOC: RAD 10:17
PROVIDERS: ATTEND Family Medicine
DX: J18.9 Pneumonia, unspecified organism (principal)
CPT/HCPCS: 71046

== ENCOUNTER → 2019-06-04 | Outpatient (CLI) | payer MEDICARE, MEDICAID ==
--- NOTE | 2019-06-04 13:10 | Diagnostic Imaging Report ---
Indication: Aspiration pneumonia. The study was performed in conjunction with speech pathology. Video fluoroscopy was performed during swallowing of barium in multiple consistencies. Total of 1 minute 8 seconds of fluoroscopy was utilized. Patient ingested thin liquid as well as applesauce, banana, meat and cracker consistency. The patient swallows very rapidly. There is no epiglottic tilt. No significant residue is seen. No laryngeal elevation or aspiration was observed. Impression: No evidence of aspiration or penetration. Dictated by: Dictated on workstation # [id number]
== END ==
LOC: RAD 10:31
PROVIDERS: ATTEND Family Medicine
DX: R13.10 Dysphagia, unspecified (principal)
CPT/HCPCS: 74230

== ENCOUNTER 2020-09-28 07:28 | Emergency (ER) | payer MEDICARE, MEDICAID ==
[~2020-09-28] VITALS: Ht 152 cm; Wt 49.0 kg
--- NOTE | 2020-09-28 07:38 | ED Cough/URI ---
General Stated Complaint: CONGESTION / COUGH Source: patient Exam Limitations: no limitations History of Present Illness Date Seen by Provider: Sep 28, 2020 Time Seen by Provider: 07:33 Initial Comments 54-year-old female brought in by EMS. Patient with cough and congestion 3 days. Patient does have developmental delay with behavioral issues. Patient has a mental age of approximately 5 years old. Patient very anxious with a history of anxiety along with her behavioral issues. No reports of fever. No reports of shortness of breath. No nausea or vomiting. No reports of chest pain. Patient is staff provides information due to patient's mental delay. Allergies and Home Medications Allergies Coded Allergies: No Known Drug Allergies (Unverified , 10/03/13) Home Medications Acetaminophen 500 Mg Tablet, 1,000 MG PO Q6H PRN for PAIN, (Reported) Albuterol Sulfate 1 Puff Puff, 2 PUFF INH Q4H 1 PUFF = 90 MCG Prescribed by: FRAN JACOBS on 09/28/20 0819 Aripiprazole 10 Mg Tablet, 15 MG PO 0800 & 2000, (Reported) Diazepam 5 Mg Tablet, 5 MG PO DAILY PRN, (Reported) Divalproex Sodium 500 Mg Tab, 1,000 MG PO BID, (Reported) Docusate Sodium 100 Mg Cap, 100 MG PO BID, (Reported) Folic Acid 1 Mg Tab, 1 MG PO DAILY, (Reported) Lamotrigine 100 Mg Tablet, 150 MG PO 0800 and 1400 , (Reported) Lamotrigine 100 Mg Tablet, 150 MG PO dailya @ 2000, (Reported) Loperamide Hcl 2 Mg Tab.chew, 2 MG PO TID PRN for LOOSE STOOLS, (Reported) Lorazepam 1 Mg Tab, 2 MG PO TID PRN for SEIZURE ACTIVITY, (Reported) Magnesium Hydroxide 400 Mg/5 Ml Oral.susp, 10 ML PO Q 3days PRN for CONSTIPATION, (Reported) Medroxyprogesterone Acetate 2.5 Mg Tablet, 150 MG IM Q 12 weeks, (Reported) Mirtazapine 15 Mg Tablet, 15 MG PO HS, (Reported) Multivit, Iron, Min No. 8, Fa 1 Each Tablet, 1 TAB PO HS, (Reported) Polyethylene Glycol 1 Ea Pack, 17 MG PO DAILY, (Reported) Polyethylene Glycol 17 Gm Pack, 17 GM PO DAILY, (Reported) Sod Phosphate/Sod Biphosphate 1 Ea Enem, 1 EA [place] DAILY PRN for CONSTIPATION, (Reported) Patient Home Medication List Home Medication List Reviewed: Yes Review of Systems Review of Systems Constitutional: No chills, No fever, No weakness EENTM: nose congestion Respiratory: cough Cardiovascular: no symptoms reported Gastrointestinal: no symptoms reported Genitourinary: no symptoms reported Musculoskeletal: no symptoms reported Skin: no symptoms reported Psychiatric/Neurological: No Symptoms Reported Past Rkmjxfu-Tbdrzz-Iwdkir Hx Past Med/Social Hx: Reviewed Nursing Past Med/Soc Hx Immunizations Up To Date Tetanus Booster (TDap): Less than 5yrs Date of Influenza Vaccine: Sep 28, 2013 Past Medical History Surgeries: No Respiratory: No Cardiac: No Neurological: Yes (MR, EPILEPSY) Developmental Disorder, Seizure Disorder Reproductive Disorders: No Sexually Transmitted Disease: No HIV/AIDS: No Genitourinary: Yes Bladder Infection Gastrointestinal: Yes Chronic Constipation Musculoskeletal: No Endocrine: No HEENT: No Cancer: No Psychosocial: Yes (MR) Depression Integumentary: No Blood Disorders: No Adverse Reaction/Blood Tranf: No Physical Exam Vital Signs - First Documented 09/28/20 07:49 Temp 36.2 Pulse 92 Resp 16 B/P (MAP) 131/102 (112) Pulse Ox 94 Capillary Refill : Height: 5'3.00" Weight: 122lbs. 0.0oz. 55.889672oc; 27.3 BMI Method:Stated General Appearance: other (anxious, mild hyperventilation) HEENT: PERRL/EOMI Respiratory: lungs clear, normal breath sounds, no respiratory distress, other (referred upper airway sounds from congestion) Cardiovascular: normal peripheral pulses, regular rate, rhythm Gastrointestinal: non tender, soft Neurologic/Psychiatric: no motor/sensory deficits, alert Skin: normal color, warm/dry Progress/Results/Core Measures Suspected Sepsis SIRS Temperature: Pulse: Respiratory Rate: Laboratory Tests 09/28/20 07:41: White Blood Count 4.3 Blood Pressure / Mean: Laboratory Tests 09/28/20 07:41: Creatinine 0.81, Platelet Count 141, Total Bilirubin 0.3 Results/Orders Lab Results Laboratory Tests Test 09/28/20 07:41 Range/Units White Blood Count 4.3 4.3-11.0 10^3/uL Red Blood Count 3.72 L 3.80-5.11 10^6/uL Hemoglobin 12.9 11.5-16.0 g/dL Hematocrit 39 35-52 % Mean Corpuscular Volume 104 H 80-99 fL Mean Corpuscular Hemoglobin 35 H 25-34 pg Mean Corpuscular Hemoglobin Concent 34 32-36 g/dL Red Cell Distribution Width 12.6 10.0-14.5 % Platelet Count 141 130-400 10^3/uL Mean Platelet Volume 10.0 9.0-12.2 fL Immature Granulocyte % (Auto) 1 % Neutrophils (%) (Auto) 26 L 42-75 % Lymphocytes (%) (Auto) 62 H 12-44 % Monocytes (%) (Auto) 9 0-12 % Eosinophils (%) (Auto) 1 0-10 % Basophils (%) (Auto) 1 0-10 % Neutrophils # (Auto) 1.1 L 1.8-7.8 10^3/uL Lymphocytes # (Auto) 2.7 1.0-4.0 10^3/uL Monocytes # (Auto) 0.4 0.0-1.0 10^3/uL Eosinophils # (Auto) 0.1 0.0-0.3 10^3/uL Basophils # (Auto) 0.0 0.0-0.1 10^3/uL Immature Granulocyte # (Auto) 0.0 0.0-0.1 10^3/uL Sodium Level 140 135-145 MMOL/L Potassium Level 4.0 3.6-5.0 MMOL/L Chloride Level 101 98-107 MMOL/L Carbon Dioxide Level 29 21-32 MMOL/L Anion Gap 10 5-14 MMOL/L Blood Urea Nitrogen 10 7-18 MG/DL Creatinine 0.81 0.60-1.30 MG/DL Estimat Glomerular Filtration Rate > 60 BUN/Creatinine Ratio 12 Glucose Level 84 70-105 MG/DL Calcium Level 9.1 8.5-10.1 MG/DL Corrected Calcium 9.5 8.5-10.1 MG/DL Total Bilirubin 0.3 0.1-1.0 MG/DL Aspartate Amino Transf (AST/SGOT) 25 5-34 U/L Alanine Aminotransferase (ALT/SGPT) 10 0-55 U/L Alkaline Phosphatase 54 40-136 U/L C-Reactive Protein High Sensitivity 0.60 H 0.00-0.50 MG/DL Total Protein 7.2 6.4-8.2 GM/DL Albumin 3.5 3.2-4.5 GM/DL Coronavirus 2019 ([facility]) Negative Negative Micro Results Microbiology 09/28/20 Influenza Types A,B Antigen (GENIE) - Final, Complete My Orders Orders - FRAN JACOBS DO Cbc With Automated Diff (09/28/20 07:42) Comprehensive Metabolic Panel (09/28/20 07:42) Hs C Reactive Protein (09/28/20 07:42) Influenza A And B Antigens (09/28/20 07:42) Chest 1 View, Ap/Pa Only (09/28/20 07:42) Covid 19 Inhouse Test (09/28/20 07:42) Diphenhydramine Injection (Benadryl Inje (09/28/20 07:42) Vital Signs/I&O 09/28/20 07:49 Temp 36.2 Pulse 92 Resp 16 B/P (MAP) 131/102 (112) Pulse Ox 94 Capillary Refill : Progress Note : Time: 08:17 Progress Note Patient negative for COVID, influenza. Likely a viral upper respiratory infection. I will discharge her with an inhaler prescription since she's got some mild wheezing days related staff is concerned about. Patient otherwise stable. She is discharged home in stable condition Departure Impression Primary Impression: Viral upper respiratory tract infection with cough Disposition: 01 HOME, SELF-CARE Condition: Stable Departure-Patient Inst. Referrals: ROMI PASCUAL DO (PCP/Family) Primary Care Physician Patient Instructions: Cough, Runny Nose, and the Common Cold, Viral Upper Respiratory Infection, Adult (DC) Add. Discharge Instructions: Follow-up with her primary care provider in 2-3 days for recheck in today symptoms Scripts Albuterol Sulfate (VENTOLIN HFA) 1 Puff Puff 2 PUFF INH Q4H for Wheezing, #1 INHALER 1 PUFF = 90 MCG Prov: FRAN JACOBS DO 09/28/20 FRAN JACOBS DO Sep 28, 2020 07:38
[2020-09-28] MEDS ORDERED: diphenhydrAMINE 50 MG/ML INJ (BENADRYL) IV STA (07:42)
[2020-09-28 07:51] LABS: BASOPHILS % (AUTO) 1 % (0-10); EOSINOPHILS # (AUTO) 0.1 10^3/uL (0.0-0.3); EOSINOPHILS % (AUTO) 1 % (0-10); HEMATOCRIT 39 % (35-52); HEMOGLOBIN 12.9 g/dL (11.5-16.0); LYMPHOCYTES # (AUTO) 2.7 10^3/uL (1.0-4.0); LYMPHOCYTES % (AUTO) 62 % (12-44); MEAN CORPUSCULAR HEMOGLOBIN 35 pg (25-34); MEAN CORPUSCULAR HGB CONC 34 g/dL (32-36); MEAN CORPUSCULAR VOLUME 104 fL (80-99); MONOCYTES # (AUTO) 0.4 10^3/uL (0.0-1.0); MONOCYTES % (AUTO) 9 % (0-12); NEUTROPHILS # (AUTO) 1.1 10^3/uL (1.8-7.8); NEUTROPHILS % (AUTO) 26 % (42-75); PLATELET COUNT 141 10^3/uL (130-400); WHITE BLOOD COUNT 4.3 10^3/uL (4.3-11.0)
[2020-09-28 08:03] LABS: ALBUMIN 3.5 GM/DL (3.2-4.5); CHLORIDE 101 MMOL/L (98-107); SODIUM 140 MMOL/L (135-145)
[2020-09-28 08:05] LABS: CALCIUM 9.1 MG/DL (8.5-10.1)
[2020-09-28 08:06] LABS: GLUCOSE 84 MG/DL (70-105); TOTAL PROTEIN 7.2 GM/DL (6.4-8.2)
[2020-09-28 08:07] LABS: BILIRUBIN,TOTAL 0.3 MG/DL (0.1-1.0); CARBON DIOXIDE 29 MMOL/L (21-32)
[2020-09-28 08:09] LABS: ALKALINE PHOSPHATASE 54 U/L (40-136); CREATININE SERUM 0.81 MG/DL (0.60-1.30); GFR ESTIMATED > 60
[2020-09-28 08:11] LABS: BUN/CREATININE RATIO 12
[2020-09-28 08:12] LABS: ALANINE AMINOTRANSFERASE 10 U/L (0-55)
[2020-09-28] MEDS ORDERED: RT-ALBUINH INH (08:19)
[2020-09-28 08:50] VITALS: BP 107/65
--- NOTE | 2020-09-28 08:55 | Diagnostic Imaging Report ---
INDICATION: Cough and congestion. Comparison with 05/16/2019. FINDINGS: Portable chest. Lungs well-aerated and clear. Heart is not enlarged. No pulmonary edema or hilar adenopathy. There is battery generator for nerve stimulator on the left with leads extending to the region of the left neck base. IMPRESSION: 1. The lungs remain clear. Heart normal. 2. The nerve stimulator overlying the left chest unchanged. Dictated by: Dictated on workstation # [id number]
== END 2020-09-28 08:50 | disposition home or self-care (01) ==
LOC: EDUNIT# 07:28 → ER 07:29
DX: J06.9 Acute upper respiratory infection, unspecified (principal); R05 Cough; F41.9 Anxiety disorder, unspecified; F32.9 Major depressive disorder, single episode, unspecified; G40.909 Epilepsy, unspecified, not intractable, without status epilepticus; Z20.828 Contact with and (suspected) exposure to other viral communicable diseases
CPT/HCPCS: 71045; 80053; 85025; 86141; 87804; U0002; 36415; 87635

== ENCOUNTER → 2022-07-21 | Outpatient (CLI) | payer MEDICARE, MEDICAID ==
[~2022-07-21] MED LIST changes: +RT-ALBUINH INH
--- NOTE | 2022-07-21 12:53 | Diagnostic Imaging Report ---
INDICATION: Palpable lump right breast. Correlation is made prior mammogram 03/31/2021 and 04/06/2017. 2-D and 3-D bilateral diagnostic mammography was performed with CAD. CAD is utilized. The current study was also evaluated with a Computer Aided Detection (CAD) system. BB marker was placed at the area palpable abnormality in the upper outer retroareolar right breast. Both breasts are heterogeneously dense, limiting sensitivity of mammography. There are extensive benign calcifications throughout both breasts. No mass is seen. No malignant-appearing microcalcifications are identified. There are biopsy clips in both breasts. Axillae are unremarkable. IMPRESSION: BI-RADS 0 No mammographic features suspicious for malignancy are identified. Even so, sonographic interrogation of the area of lump in the upper outer right breast anterior depth is recommended and will be performed today. ACR BI-RADS Category 0: Incomplete. (Needs additional imaging evaluation). Result letter will be mailed to the patient. Note: At least 10% of breast cancer is not imaged by mammography. Dictated by: Dictated on workstation # [id number]
--- NOTE | 2022-07-21 14:37 | Diagnostic Imaging Report ---
INDICATION: Right breast lump. Correlation is made to diagnostic mammogram earlier same day. Sonographic interrogation of the area of lump upper outer right breast was performed. There is a circumscribed slightly lobulated hypoechoic nodule at the 10:00 location, 2 cm from the nipple measuring 7 mm x 4 mm x 5 mm. No internal vascularity is seen. No posterior acoustic shadowing is present. IMPRESSION: Circumscribed solid appearing nodule 2:00 location right breast, 2 cm from the nipple. This has fairly benign features. Consideration could be given to either sonographic follow-up in 6 months confirm stability or perhaps ultrasound-guided biopsy. BI-RADS Category 3 ACR BI-RADS Category 3: Probably benign findings. Dictated by: Dictated on workstation # [id number]
== END ==
LOC: RAD 12:18
PROVIDERS: ATTEND Family Medicine
DX: N63.11 Unspecified lump in the right breast, upper outer quadrant (principal)
CPT/HCPCS: 76642; 77066; G0279; 77062

== ENCOUNTER → 2022-09-06 | Outpatient (CLI) | payer MEDICARE, MEDICAID ==
[~2022-09-06] MED LIST changes: +LIDOCAINE 1% INJ 10 ML VIAL INJ ONE; +LIDOCAINE 1% INJ 10 ML VIAL ONE
--- NOTE | 2022-09-06 11:23 | Diagnostic Imaging Report ---
INDICATION: Right breast nodule. Patient presents for ultrasound-guided biopsy. Patient brought to the sonographic suite placed on table in the supine position. Ultrasound imaging of the right breast was performed to evaluate appropriate entry site. The right breast was then prepped and draped in usual sterile fashion. Small amount of 1% lidocaine was utilized for local anesthesia. A total of 4 core biopsies were made of a hypoechoic nodule at the 2 o'clock location of the right breast, 2 cm from the nipple utilizing a 14-gauge Achieve needle. Marker clip was then deployed. Hemostasis was obtained using manual compression. Patient tolerated the procedure well and was sent for post procedure mammogram in satisfactory condition. IMPRESSION: Successful ultrasound guided core biopsy of the hypoechoic nodule at the 2 o'clock location right breast, 2 cm from the nipple. Pathology results are currently pending. Dictated by: Dictated on workstation # [id number]
--- NOTE | 2022-09-06 19:21 | Diagnostic Imaging Report ---
INDICATION: Right breast nodule, status post ultrasound-guided biopsy. Unilateral right 2-D CC and ML mammography was performed after patient underwent ultrasound guided right breast biopsy. There is a marker clip in the medial right breast at mid depth. A second marker clip is noted more posteriorly in the medial right breast. IMPRESSION: Marker clip placement, status post ultrasound-guided right breast biopsy. Dictated by: Dictated on workstation # [id number]
== END ==
LOC: RAD 09:51
PROVIDERS: ATTEND Family Medicine
DX: N63.12 Unspecified lump in the right breast, upper inner quadrant (principal)
CPT/HCPCS: 19083; 77065; G0279